=== PATIENT | female | born 1995 | race Two or more races ===

== ENCOUNTER 2016-07-30 16:54 | Emergency (ER) | payer SELFPAY ==
[~2016-07-30] VITALS: Ht 172.7 cm; Wt 78.0 kg
[2016-07-30 16:57] VITALS: Ht 172.7 cm; Wt 78.0 kg
--- NOTE | 2016-07-30 18:06 | ERD ---
ER Documentation Chief Complaint Date/Time DATE: 07/30/16 TIME: 17:55 Chief Complaint 6 WEEKS PREG WITH VOMITING DENIES VB HPI 21 y/o female presents to ED for vomiting that is on and off for about a few days. 8 weeks . Stated she was treated for her throat infection 2 weeks ago. Denies headache, loss of consciousness, dizziness, blurry vision, changes in vision, photophobia, facial pain, ear pain, throat pain, difficulty swallowing, neck pain, shoulder pain, chest pain, cough, hemoptysis, abdominal pain, back pain, loss of appetite, hematochezia, diarrhea, constipation, urinary symptoms, bladder and bowel incontinences, extremity weakness, extremity tenderness, numbness or tingling sensation, difficulty walking, recent exposure to illness, fever, chills. Allergy: NKA PMH: Denies. Family medical history: Denies. with 1 miscarriage. LMP: 06/25/2016 Medications: Stated that she just finished a "penicillin-like antibiotic." Surgery: Denies. Social: Not working at this time. Denies smoking, use of alcohol, use of illegal drugs. ROS All systems reviewed and are negative except as per history of present illness. Medications Home Meds Active Scripts Ondansetron Hcl* (Zofran*) 4 Mg Tablet, 4 MG PO Q6H Y for NAUSEA, #30 TAB Prov:FERMIN CERDA 07/30/16 Clindamycin Hcl* (Clindamycin Hcl*) 300 Mg Capsule, 300 MG PO TID for 10 Days, CAP Prov:FERMIN CERDA F 07/30/16 PMhx/Soc Medical and Surgical Hx: pt denies Surgical Hx History of Surgery: No Anesthesia Reaction: No Hx Neurological Disorder: No Hx Respiratory Disorders: No Hx Cardiac Disorders: Yes (htn) Hx Psychiatric Problems: No Hx Miscellaneous Medical Probl: No Hx Alcohol Use: No Hx Substance Use: No Hx Tobacco Use: No Smoking Status: Never smoker Physical Exam Vitals Vital Signs Date Time Temp Pulse Resp B/P Pulse Ox O2 Delivery O2 Flow Rate FiO2 07/30/16 20:00 98.9 72 18 107/68 99 Room Air 07/30/16 16:57 98.9 98 18 123/57 99 Physical Exam CONSTITUTIONAL: Well-appearing; well-nourished; in no apparent distress.~ HEAD: Normocephalic; atraumatic.~ No visible or palpable masses. EYES: Conjunctiva clear, sclera non-icteric, EOM intact. PERRL Ears: Hearing intact. EACs clear, TMs non-bulging, non-inflamed, translucent & mobile, ossicles normal appearance, No obstructions, no erythema, no discharges Nose: No obstructions. No polyps. No external lesions. Mucosa non-inflamed. No external lesions, septum and turbinates normal. No rhinorrhea. No discharges. Frontal sinus is non-tender to palpation. Maxillary sinus is non-tenderness to palpation. MOUTH: Moist mucous membranes, no lesion, no obstructions, no vesicles, no thrush TEETH: No obvious carries or periodontal diseases. No gingival inflammation, lesions, bleeding, discharge. Throat: Uvula in midline. Right tonsil is +2 with no erythema, but with exudate. Left tonsil is +2 with no erythema, but with exudate. Tolerating secretions well. Good gag reflex. Neck: Supple, without lesions, bruits, or adenopathy. No mass. Thyroid non- enlarged and non-tender to palpation. CHEST: Symmetrical chest. Respirations even and not labored. No retractions noted. CARDIOVASCULAR: Normal S1, S2. RRR. No murmurs, gallops. RESPIRATORY: Normal chest excursion with respiration; breath sounds clear and equal bilaterally; no wheezes, rhonchi, or rales. Breathing even and unlabored. Speaking in clear, full, and complete sentences w/ ease. ABDOMEN: Normal bowel sounds normal. Soft, round, non-distended, non-guarding, no tenderness, no rebound, no organomegaly, no masses, no pulsating abdominal mass. No hernia. No peritoneal signs. : No CVA Tenderness. BACK: Symmetrical shoulder. Spine is midline without deformity, tenderness. No evidence of trauma or deformity. PELVIS: Stable pelvis. No evidence of trauma or deformity.~ MUSCULOSKELETAL: Normal gait and station. No misalignment, asymmetry, crepitation, defects, tenderness, masses, effusions, decreased range of motion, instability, atrophy or abnormal strength or tone in the head, neck, spine, ribs , pelvis or extremities. No calf tenderness. NEUROVASCULAR: Distal pulses are present. Pedal pulse are present, equal, and normal. Cap refills are < 2 seconds. NEUROLOGIC: Alert and oriented x4. Speaks full and clear sentences. Cranial Nerves II-XII normal. Sensation to pain, touch, and proprioception normal. Grossly unremarkable. No neurologic deficits. Romberg test is negative. PSYCHOLOGICAL: The patients mood and manner are appropriate. No hallucinations , delusions. Not SI. Not HI. Has the capacity to decide for himself/herself. SKIN: Normal for age and ethnicity; warm; dry; good turgor; no apparent lesions or exudates. No rashes, hives, discoloration. Intact. Results 24 hrs Laboratory Tests Test 07/30/16 18:18 Urine Bacteria FEW Urine Bilirubin NEGATIVE Urine Clarity SLIGHTLY CLOUDY Urine Color YELLOW Urine Glucose NEGATIVE% Urine Hemoglobin TRACE Urine Ketones 40 Urine Leukocyte Esterase TRACE Urine Microscopic RBC 0-2/HPF Urine Microscopic WBC 2-5/HPF Urine Nitrite NEGATIVE Urine Specific [place] 1.015 Urine Squamous Epithelial Cells MODERATE Urine Total Protein NEGATIVE Urine Urobilinogen 1.0 E.U./dL Urine pH 6.5 Current Medications Medications (Trade) Dose Ordered Sig/Kyle Route PRN Reason Start Time Stop Time Status Last Admin Dose Admin Ondansetron HCl (Zofran Odt) 4 mg ONCE STAT ODT 07/30/16 19:39 07/30/16 19:40 DC 07/30/16 19:45 Acetaminophen (Tylenol Tab) 1,000 mg ONCE STAT PO 07/30/16 20:09 07/30/16 20:10 DC 07/30/16 20:12 Procedures/MDM Examination: Unremarkable examination except exudates. Unremarkable abdominal exam. Disease process, medical treatment was explained to the patient and family member. They verbalized understanding and agreed with the diagnostic tests, medical treatment, and follow-up care. Urinalysis: Reviewed. Treatment: Zofran. Re-evaluation: Denies pain. No nausea and vomiting. Unremarkable abdominal exam. No CVA tenderness. Denies vaginal bleeding. Appears comfortable. Consultation: None. Differential diagnosis: Nausea and vomiting versus strep throat versus urinary tract infection Medical decision [id number] y/o female presents to ED for vomiting that is on and off for about a few days. 8 weeks . Stated she was treated for her throat infection 2 weeks ago. Patient's complaint, my physical findings, diagnostic test results are consistent with my final diagnosis of strep throat. Medications prescribed are the following: Clindamycin. Zofran. Patient and family member are made aware of the side effects and adverse reactions of the medications prescribed. Instructed on when to seek emergent and medical attention in case allergic/anaphylactic reactions or severe side effects and or adverse reactions to medications. Patient and family member verbalized understanding. Patient instructed Instructed to follow-up with his PCP in 24-48 hours. Follow-up with OB in the next 24-48 hours. OB referral source given. Instructed to Call 911 for chest pain, shortness of breath. Advised to come back here in ED as soon as possible for severity of symptoms which includes but not limited to: any new symptoms; shortness of breath/difficulty of breathing; cardiovascular changes; severe gastrointestinal symptoms; signs and symptoms of bleeding and or infection; signs of compartment syndrome/neurovascular changes; neurological changes/deficits. Patient and family member verbalized understanding. Upon discharge, patient is alert and oriented x 4, speaks full and clear sentences, denies pain, has no neurological deficits, has no neurovascular deficits, difficulty of breathing. Breathing even and unlabored. Lung sounds are clear to auscultation. Not in distress. Unremarkable abdominal exam. No peritoneal signs. No CVA tenderness. Denies vaginal bleeding. No active bleeding. Denies vaginal discharge. Appears comfortable. Ambulatory with steady gait. Appears satisfied with care provided here in ED. Departure Diagnosis: Primary Impression: Strep throat Condition: Good Additional Instructions: Follow-up with PCP in the next 24-48 hours. Follow-up with OB in the next 24- 48 hours. Patient was given OB referral. FERMIN CERDA Jul 30, 2016 18:06
[2016-07-30 19:10] LABS: ADD UMIC YES; URINE BILIRUBIN (Dip) NEGATIVE (NEGATIVE); URINE BLOOD (Dip) TRACE (NEGATIVE); URINE GLUCOSE (Dip) NEGATIVE (NEGATIVE); URINE KETONES (Dip) 40 (NEGATIVE); URINE LEUKOCYTE ESTERASE (Dip) TRACE (NEGATIVE); URINE NITRITE (Dip) NEGATIVE (NEGATIVE); URINE TOTAL PROTEIN (Dip) NEGATIVE (NEGATIVE); URINE UROBILINOGEN (Dip) 1.0 E.U./dL (0.1-1.0)
[2016-07-30 19:37] LABS: BACTERIA,URINE FEW; SQUAMOUS EPITHELIAL CELL,UR MODERATE; URINE COLOR YELLOW (YELLOW); URINE RBCS 0-2 /HPF (0)
[2016-07-30] MEDS ORDERED: ONDANSETRON (ODT) 4 MG TAB ODT STA (19:39)
[2016-07-30] MEDS ORDERED: ONDA4TAB8 PO (19:55)
[2016-07-30] MEDS ORDERED: CLIN-73 PO (19:55)
[2016-07-30 20:00] VITALS: BP 107/68; PULSE 72; RESP 18; TEMP 98.9
[2016-07-30] MEDS ORDERED: ACETAMINOPHEN 500 MG TAB PO STA (20:09)
== END 2016-07-30 20:14 | disposition home or self-care (01) ==
LOC: FTE 16:54
DX: O99.511 Diseases of the respiratory system complicating pregnancy, first trimester (principal); J02.0 Streptococcal pharyngitis; O10.011 Pre-existing essential hypertension complicating pregnancy, first trimester; Z3A.08 8 weeks gestation of pregnancy
CPT/HCPCS: 81001; 81003; 99284

== ENCOUNTER 2016-08-02 19:31 | Emergency (ER) | payer SELFPAY ==
[~2016-08-02] VITALS: Ht 182.9 cm; Wt 76.4 kg
[~2016-08-02 19:31] MED LIST: CLIN-73 PO; ONDA4TAB8 PO
[2016-08-02 20:03] VITALS: Ht 182.9 cm; Wt 76.4 kg
--- NOTE | 2016-08-02 22:12 | ERD ---
ER Documentation Chief Complaint Date/Time DATE: 08/02/16 TIME: 22:09 Chief Complaint 6 weeks and vomiting for a week HPI 21-year-old female sent here in emergency department complains of pelvic pain, cramping pain,4/10 scale, accompanied with vomiting. Patient was seen here 4 days ago was diagnosed of urinary tract infection and throat infection. Patient' s going taking antibiotics and Zofran. Patient states that patient continues to vomiting, pill Zofran does not work, patient is requesting ODT Zofran. She is approximately 6 weeks . 2 para 1 0. Last menstruation 06/25/2016 patient denies any cramping. Patient denies any fever or chills. ROS All systems reviewed and are negative except as per history of present illness. Medications Home Meds Active Scripts Ondansetron Hcl* (Zofran*) 4 Mg Tablet, 4 MG PO Q6H Y for NAUSEA, #30 TAB Prov:JENNIFERBANESSENCEAR F 07/30/16 Clindamycin Hcl* (Clindamycin Hcl*) 300 Mg Capsule, 300 MG PO TID for 10 Days, CAP Prov:PASILABAN,KLAR F 07/30/16 Allergies Allergies: Coded Allergies: No Known Allergy (Unverified , 08/02/16) PMhx/Soc Medical and Surgical Hx: pt denies Surgical Hx History of Surgery: No Anesthesia Reaction: No Hx Neurological Disorder: No Hx Respiratory Disorders: No Hx Cardiac Disorders: Yes (htn) Hx Psychiatric Problems: No Hx Miscellaneous Medical Probl: No Hx Alcohol Use: No Hx Substance Use: No Hx Tobacco Use: No Smoking Status: Never smoker FmHx Family History: No coronary disease, No diabetes, No other Physical Exam Vitals Vital Signs Date Time Temp Pulse Resp B/P Pulse Ox O2 Delivery O2 Flow Rate FiO2 08/02/16 20:03 98.8 98 18 112/62 100 Physical Exam GENERAL: The patient is well developed and appropriate for usual state of health, in no apparent distress. CHEST: Clear to auscultation bilaterally. There are no rales, wheezes or rhonchi. HEART: Regular rate and rhythm. No murmurs, clicks, rubs or gallops. No S3 or S4. ABDOMEN: Soft, nontender and nondistended. Good bowel sounds. No rebound or guarding. No gross peritonitis. No gross organomegaly or masses. No Zarco sign or McBurney point tenderness. BACK: No midline or flank tenderness. EXTREMITIES: Equal pulses bilaterally. There is no peripheral clubbing, cyanosis or edema. No focal swelling or erythema. Full range of motion. Grossly neurovascularly intact. NEURO: Alert and oriented. Cranial nerves 2-12 intact. Motor strength in all 4 extremities with 5/5 strength. Sensation grossly intact. Normal speech and gait. SKIN: There is no apparent rash or petechia. The skin is warm and dry. HEMATOLOGIC AND LYMPHATIC: There is no evidence of excessive bruising or lymphedema. No gross cervical, axillary, or inguinal lymphadenopathy. Result Diagram: 08/02/16 2300 [id number]/02/[id number] Results 24 hrs Laboratory Tests Test 08/02/16 23:00 08/03/16 00:02 Alanine Aminotransferase (ALT/SGPT) 24IU/L Albumin 4.3g/dl Albumin/Globulin Ratio 1.00 Alkaline Phosphatase 72IU/L Anion Gap 21 Aspartate Amino Transf (AST/SGOT) 19IU/L Basophils # 0.110^3/ul Basophils % 0.6% Beta HCG, Quantitative 52653.0mIU/ml Blood Morphology Comment Blood Urea Nitrogen 10mg/dl Calcium Level 9.2mg/dl Carbon Dioxide Level 24mmol/L Chloride Level 102mmol/L Creatinine 0.49mg/dl Direct Bilirubin 0.00mg/dl Eosinophils # 0.010^3/ul Eosinophils % 0.4% Globulin 4.30g/dl Glucose Level 106mg/dl Hematocrit 35.2% Hemoglobin 11.8g/dl Indirect Bilirubin 0.2mg/dl Lymphocytes # 3.110^3/ul Lymphocytes % 24.5% Mean Corpuscular Hemoglobin 27.8pg Mean Corpuscular Hemoglobin Concent 33.4g/dl Mean Corpuscular Volume 83.3fl Mean Platelet Volume 9.5fl Monocytes # 0.610^3/ul Monocytes % 4.6% Neutrophils # 8.810^3/ul Neutrophils % 69.9% Nucleated Red Blood Cells # 0.010^3/ul Nucleated Red Blood Cells % 0.0/100WBC Platelet Count 25303^3/UL Potassium Level 3.8mmol/L Red Blood Count 4.2310^6/ul Red Cell Distribution Width 14.5% Sodium Level 143mmol/L Total Bilirubin 0.2mg/dl Total Protein 8.6g/dl White Blood Count 12.610^3/ul Urine Bilirubin 1+ Urine Clarity CLEAR Urine Color YELLOW Urine Glucose NEGATIVE% Urine Hemoglobin 1+ Urine Ictotest Pending Urine Ketones 3+ Urine Leukocyte Esterase NEGATIVE Urine Microscopic RBC Pending Urine Microscopic WBC Pending Urine Nitrite NEGATIVE Urine Specific [place] >=1.030 Urine Total Protein TRACE Urine Urobilinogen 1.0 E.U./dL Urine pH 6.0 Current Medications Medications (Trade) Dose Ordered Sig/Kyle Route PRN Reason Start Time Stop Time Status Last Admin Dose Admin Ondansetron HCl (Zofran Odt) 4 mg ONCE STAT ODT 08/02/16 23:50 08/02/16 23:51 DC 08/02/16 23:59 Patient was given Zofran here in the emergency department. After treatment, patient was able to tolerate po fluids here in the emergency department without any vomiting. There is no signs and symptoms of dehydration. PROCEDURE: US OB. CLINICAL INDICATION: . Pelvic pain. Clinical estimated gestational age is 5 weeks 3 days with estimated date of delivery 04/01/2017 TECHNIQUE: Transabdominal and transvaginal imaging of the gravid uterus was performed. Images are reviewed on a high-resolution PACS workstation. COMPARISON: None available FINDINGS: The uterus is retroverted. Intrauterine is identified. The crown- rump length equals 0.32 cm. The estimated gestational age equals 13 weeks 3 days by ultrasound criteria. Trace fluid in the endocervical canal. Normal cardiac activity is identified at 102 beats per minute. No subchorionic hemorrhage is identified. The ovaries are unremarkable. Color flow and spectral analysis demonstrates normal arterial flow in both ovaries. No adnexal mass is seen. Trace free fluid is seen in the cul-de-sac. IMPRESSION: Single live intrauterine with an estimated gestational age of 6 weeks 0 days by ultrasound criteria and an estimated date of delivery of 03/28/2017. Trace fluid in the endocervical canal. Trace free fluid in the cul-de-sac. RPTAT: HJES .Eduardo Wiggins MD, MD Date Time Electronically viewed and signed by .Eduardo Wiggins MD, on 08/02/2016 23:24 .S/ CC: CAS CHACON NP Procedures/MDM Medical Decision Making: Patient's symptoms most likely consistent with hyperemesis gravidarum. No electrolytic imbalance noted at this time. Patient's urinary tract infection has improved. There is low suspicion for abdominal emergencies at this time. Patients abdominal exam is normal at this time. Patients radiology exam does not show any abdominal emergencies at this time. There is low suspicion for appendicitis, cholecystitis, abdominal aortic aneurysms or peritonitis at this time. There is low suspicion for sepsis. Patient appears well and is hemodynamically stable. Patient's ultrasound shows a viable at 6 weeks. Disposition: Home. Condition: Stable Prescription Zofran, Pepcid Pedialyte Instructions: Patient is advised to take medications as prescribed. Patient is advised to rest, increase fluid intake and do brat diet for next 1-2 days and progress as tolerated. Patient is advised that if symptoms are worse, severe abdominal pain, uncontrolled vomiting, high fever, severe flank pain, worst signs and symptoms, to return to the emergency department immediately. Otherwise, patient can follow up with primary care doctor in 5-7 days. Departure Diagnosis: Primary Impression: Hyperemesis gravidarum Additional Impressions: Intrauterine Pelvic pain Condition: Stable Patient Instructions: Hyperemesis Gravidarum, Pelvic Pain In : Unclear (2-3 Trimester) Additional Instructions: Patient is advised to take medications as prescribed. Patient is advised to rest, increase fluid intake and do brat diet for next 1-2 days and progress as tolerated. Patient is advised that if symptoms are worse, severe abdominal pain , uncontrolled vomiting, high fever, severe flank pain, worst signs and symptoms , to return to the emergency department immediately. Otherwise, patient can follow up with primary care doctor in 5-7 days. CAS CHACON NP Aug 02, 2016 22:12
[2016-08-02 23:20] LABS: BASOPHIL # 0.1 10^3/ul (0.0-0.1); BASOPHILS % 0.6 % (0.0-2.0); EOSINOPHILS % 0.4 % (0.0-7.0); HEMATOCRIT 35.2 % (37.0-47.0); HEMOGLOBIN 11.8 g/dl (12.0-16.0); LYMPHOCYTES # 3.1 10^3/ul (0.8-2.9); LYMPHOCYTES % 24.5 % (15.0-51.0); MEAN CORPUSCULAR HEMOGLOBIN 27.8 pg (29.0-33.0); MEAN CORPUSCULAR HGB CONC 33.4 g/dl (32.0-37.0); MEAN CORPUSCULAR VOLUME 83.3 fl (82.0-101.0); MEAN PLATELET VOLUME 9.5 fl (7.4-10.4); MONOCYTE # 0.6 10^3/ul (0.3-0.9); MONOCYTES % 4.6 % (0.0-11.0); NEUTROPHIL # 8.8 10^3/ul (1.6-7.5); NEUTROPHILS % 69.9 % (39.0-77.0); PLATELET COUNT 319 10^3/UL (140-440); RED BLOOD COUNT 4.23 10^6/ul (4.20-5.40); RED CELL DISTRIBUTION WIDTH 14.5 % (11.5-14.5); UNCORRECTED WBC 12.6 10^3/ul (4.8-10.8); WHITE BLOOD COUNT 12.6 10^3/ul (4.8-10.8)
[2016-08-02 23:21] LABS: CONDITION 1
--- NOTE | 2016-08-02 23:25 | RADRPT ---
PROCEDURE: US OB. CLINICAL INDICATION: . Pelvic pain. Clinical estimated gestational age is 5 weeks 3 days with estimated date of delivery 04/01/2017 TECHNIQUE: Transabdominal and transvaginal imaging of the gravid uterus was performed. Images are reviewed on a high-resolution PACS workstation. COMPARISON: None available FINDINGS: The uterus is retroverted. Intrauterine is identified. The crown-rump length equals 0.32 cm. The estimated gestational age equals 13 weeks 3 days by ultrasound criteria. Trace fluid in th e endocervical canal. Normal cardiac activity is identified at 102 beats per minute. No subc horionic hemorrhage is identified. The ovaries are unremarkable. Color flow and spectral analysis d emonstrates normal arterial flow in both ovaries. No adnexal mass is seen. Trace free fluid is see n in the cul-de-sac. IMPRESSION: Single live intrauterine with an estimated gestational age of 6 weeks 0 days by ultrasound criteria and an estimated date of delivery of 03/28/2017. Trace fluid in the endocervical canal. T race free fluid in the cul-de-sac. RPTAT: HJES .Eduardo Wiggins MD, Date Time Electronically viewed and signed by .Eduardo Wiggins MD, on 08/02/2016 23:24 .S/
[2016-08-02 23:29] LABS: ALBUMIN 4.3 g/dl (3.3-4.9); POTASSIUM 3.8 mmol/L (3.5-5.1)
[2016-08-02 23:31] LABS: BILIRUBIN,INDIRECT 0.2 mg/dl (0-1.1); BILIRUBIN,TOTAL 0.2 mg/dl (0.2-1.3); CREATININE 0.49 mg/dl (0.44-1.00)
[2016-08-02 23:32] LABS: TOTAL PROTEIN 8.6 g/dl (6.1-8.1)
[2016-08-02 23:33] LABS: CALCIUM 9.2 mg/dl (8.4-10.2)
[2016-08-02] MEDS ORDERED: ONDANSETRON (ODT) 4 MG TAB ODT STA (23:50)
[2016-08-03 00:31] LABS: ADD UMIC YES; URINE BILIRUBIN (Dip) 1+ (NEGATIVE); URINE BLOOD (Dip) 1+ (NEGATIVE); URINE COLOR YELLOW (YELLOW); URINE GLUCOSE (Dip) NEGATIVE (NEGATIVE); URINE KETONES (Dip) 3+ (NEGATIVE); URINE LEUKOCYTE ESTERASE (Dip) NEGATIVE (NEGATIVE); URINE NITRITE (Dip) NEGATIVE (NEGATIVE); URINE TOTAL PROTEIN (Dip) TRACE (NEGATIVE); URINE UROBILINOGEN (Dip) 1.0 E.U./dL (0.1-1.0)
[2016-08-03] MEDS ORDERED: ONDA4TAB14 PO (00:51)
[2016-08-03] MEDS ORDERED: FAMO-18 PO (00:51)
[2016-08-03 01:17] VITALS: BP 119/60; PULSE 81; RESP 17; TEMP 99.3
[2016-08-03 01:24] LABS: BACTERIA,URINE FEW; MUCUS,URINE MODERATE; SQUAMOUS EPITHELIAL CELL,UR FEW
[2016-08-03 02:11] LABS: ICTOTEST NEGATIVE (NEGATIVE)
== END 2016-08-03 01:19 | disposition home or self-care (01) ==
LOC: FTE 19:31
DX: O21.0 Mild hyperemesis gravidarum (principal); R10.2 Pelvic and perineal pain; I10 Essential (primary) hypertension; Z3A.01 Less than 8 weeks gestation of pregnancy
CPT/HCPCS: 36415; 76801; 76817; 80053; 81001; 81003; 84702; 85025; 86900; 86901

== ENCOUNTER 2016-08-16 02:26 | Emergency (ER) | payer MEDICAID ==
[~2016-08-16] VITALS: Ht 172.7 cm; Wt 75.0 kg
[~2016-08-16 02:26] MED LIST changes: +FAMO-18 PO; +ONDA4TAB14 PO
[2016-08-16 02:45] VITALS: Ht 172.7 cm; Wt 75.0 kg
[2016-08-16] MEDS ORDERED: ONDANSETRON 4 MG INJ IV STA (03:57)
[2016-08-16] MEDS ORDERED: SOD CHLORIDE 0.9% 1,000 ML IV ONE (04:00)
[2016-08-16] MEDS ORDERED: LIDOCAINE/MYLANTA 40 ML BTL PO ONE (04:30)
[2016-08-16] MEDS ORDERED: FAMOTIDINE 20 MG INJ IV ONE (04:30)
[2016-08-16] MEDS ORDERED: MULTIVITAMINS 10 ML, THIAMINE 100 MG, FOLIC ACID 1 MG, MAGNESIUM SULFATE 2 GM in SOD CH... IV ONE (04:30)
--- NOTE | 2016-08-16 04:34 | ERD ---
ER Documentation Chief Complaint Date/Time DATE: 08/16/16 TIME: 04:32 Chief Complaint 8 weeks ,vomiting,denies abd/pelvic pain HPI 21-year-old female presents to emergency department for complaints of multiple episodes of vomiting. Patient has been diagnosed with hyperemesis gravidarum, has been seen in the emergency department 3 times, has tried multiple medications, continues to have the vomiting. Patient was told to return to the emergency department if medication does not work. Patient denies any abdominal pain. Patient is complaining of mid chest pain acid reflux burning pain, 4/10 scale, accompanied with the vomiting. Patient denies any fever or chills. 1 para 0 0. Patient denies any vaginal bleeding. Patient denies any flank pain. Patient denies hematuria or dysuria. ROS All systems reviewed and are negative except as per history of present illness. Medications Home Meds Active Scripts Famotidine* (Pepcid*) 20 Mg Tablet, 20 MG PO BID, #60 TAB Prov:CAS CHACON NP 08/03/16 Ondansetron (Ondansetron Odt) 4 Mg Tab.rapdis, 4 MG PO Q8 Y for NAUSEA AND/OR VOMITING, #30 TAB Prov:CAS CHACON ELECTRON GUN INSPECTOR 08/03/16 Ondansetron Hcl* (Zofran*) 4 Mg Tablet, 4 MG PO Q6H Y for NAUSEA, #30 TAB Prov:FERMIN CERDA F 07/30/16 Clindamycin Hcl* (Clindamycin Hcl*) 300 Mg Capsule, 300 MG PO TID for 10 Days, CAP Prov:FERMIN CERDA F 07/30/16 Allergies Allergies: Coded Allergies: No Known Allergy (Unverified , 08/02/16) PMhx/Soc Medical and Surgical Hx: pt denies Medical Hx, pt denies Surgical Hx History of Surgery: No Anesthesia Reaction: No Hx Neurological Disorder: No Hx Respiratory Disorders: No Hx Cardiac Disorders: No Hx Psychiatric Problems: No Hx Miscellaneous Medical Probl: No Hx Alcohol Use: No Hx Substance Use: No Hx Tobacco Use: No Smoking Status: Never smoker FmHx Family History: No coronary disease, No diabetes, No other Physical Exam Vitals Vital Signs Date Time Temp Pulse Resp B/P Pulse Ox O2 Delivery O2 Flow Rate FiO2 08/16/16 02:45 99.8 97 18 108/73 98 Physical Exam GENERAL: The patient is well developed and appropriate for usual state of health, in no apparent distress. CHEST: Clear to auscultation bilaterally. There are no rales, wheezes or rhonchi. HEART: Regular rate and rhythm. No murmurs, clicks, rubs or gallops. No S3 or S4. ABDOMEN: Soft, nontender and nondistended. Good bowel sounds. No rebound or guarding. No gross peritonitis. No gross organomegaly or masses. No Zarco sign or McBurney point tenderness. BACK: No midline or flank tenderness. EXTREMITIES: Equal pulses bilaterally. There is no peripheral clubbing, cyanosis or edema. No focal swelling or erythema. Full range of motion. Grossly neurovascularly intact. NEURO: Alert and oriented. Cranial nerves 2-12 intact. Motor strength in all 4 extremities with 5/5 strength. Sensation grossly intact. Normal speech and gait. SKIN: There is no apparent rash or petechia. The skin is warm and dry. HEMATOLOGIC AND LYMPHATIC: There is no evidence of excessive bruising or lymphedema. No gross cervical, axillary, or inguinal lymphadenopathy. Result Diagram: 08/16/1644108/16/16441 Results 24 hrs Laboratory Tests Test 08/16/16 04:32 08/16/16 04:42 Urine Bacteria FEW Urine Bilirubin NEGATIVE Urine Clarity SLIGHTLY CLOUDY Urine Color LT. YELLOW Urine Glucose NEGATIVE% Urine Hemoglobin 2+ Urine Ketones 3+ Urine Leukocyte Esterase TRACE Urine Microscopic RBC 10-25/HPF Urine Microscopic WBC 10-25/HPF Urine Mucus MODERATE Urine Nitrite NEGATIVE Urine Specific [employer] >=1.030 Urine Squamous Epithelial Cells MANY Urine Total Protein TRACE Urine Urobilinogen 0.2 E.U./dL Urine pH 6.5 Alanine Aminotransferase (ALT/SGPT) 39IU/L Albumin 4.3g/dl Albumin/Globulin Ratio 1.00 Alkaline Phosphatase 71IU/L Anion Gap 24 Aspartate Amino Transf (AST/SGOT) 25IU/L Basophils # 0.010^3/ul Basophils % 0.2% Beta HCG, Quantitative 906582.0mIU/ml Blood Urea Nitrogen 9mg/dl Calcium Level 9.8mg/dl Carbon Dioxide Level 21mmol/L Chloride Level 101mmol/L Creatinine 0.49mg/dl Direct Bilirubin 0.00mg/dl Eosinophils # 0.110^3/ul Eosinophils % 0.6% Globulin 4.30g/dl Glucose Level 87mg/dl Hematocrit 38.5% Hemoglobin 12.4g/dl Indirect Bilirubin 0.4mg/dl Lipase 86U/L Lymphocytes # 2.110^3/ul Lymphocytes % 25.3% Mean Corpuscular Hemoglobin 27.1pg Mean Corpuscular Hemoglobin Concent 32.2g/dl Mean Corpuscular Volume 84.1fl Mean Platelet Volume 11.2fl Monocytes # 0.410^3/ul Monocytes % 4.7% Neutrophils # 5.710^3/ul Neutrophils % 68.8% Nucleated Red Blood Cells # 0.010^3/ul Nucleated Red Blood Cells % 0.0/100WBC Platelet Count 82286^3/UL Potassium Level 3.9mmol/L Red Blood Count 4.5810^6/ul Red Cell Distribution Width 13.7% Sodium Level 142mmol/L Total Bilirubin 0.4mg/dl Total Protein 8.6g/dl White Blood Count 8.310^3/ul Current Medications Medications (Trade) Dose Ordered Sig/Kyle Route PRN Reason Start Time Stop Time Status Last Admin Dose Admin Ondansetron HCl 4 mg 4 mg ONCE STAT IV 08/16/16 03:57 08/16/16 04:00 DC 08/16/16 04:46 Sodium Chloride 1,000 ml @ 1,000 mls/hr Q1H ONCE IV 08/16/16 04:00 08/16/16 04:59 DC 08/16/16 04:46 Multivitamins/ Thiamine HCl/ Folic Acid/ Magnesium Sulfate/ Sodium Chloride (Mvi-12 Adult/ Vitamin B1/Folic Acid/Magnesium Sulfate/NS) 1,015.2 ml @ 500 mls/ hr Q2H2M ONCE IV 08/16/16 04:30 08/16/16 06:31 08/16/16 05:35 Miscellaneous Medication (Gi Cocktail (2)) 40 ml ONCE ONCE PO 08/16/16 04:30 08/16/16 04:31 DC 08/16/16 04:46 Famotidine (Pepcid Iv) 20 mg ONCE ONCE IV 08/16/16 04:30 08/16/16 04:31 DC 08/16/16 04:46 I Discussed this case with OB Laborist, Dr Ordoñez, recommended to give patient banana bag, GI cocktail, Pepcid, fluids and Zofran for symptoms. Patient was given Zofran here in the emergency department. After treatment, patient was able to tolerate po fluids here in the emergency department without any vomiting. There is no signs and symptoms of dehydration. Normal saline IV bolus and banana bag IV was given here in emergency department for rehydration, patient tolerated IV fluids. PROCEDURE: Obstetrical ultrasound. CLINICAL INDICATION: Vaginal bleeding. TECHNIQUE: Multiple sonographic images of the pelvis were obtained with transabdominal technique. Images were obtained with beyer scale and color Doppler. COMPARISON: 08/02/2016. FINDINGS: There is an intrauterine gestational sac with a pole identified. heart tones of 163 beats per minute are identified. The crown-rump length averages 1.30 cm, compatible with 7 weeks and 4 days. The mean sac diameter averages 3.00 cm, compatible with 8 weeks and 0 days. A yolk sac is not visualized. No subchorionic collection is identified. There is no pelvic free fluid. Bilateral ovaries are not visualized. There is no suspicious adnexal mass identified. IMPRESSION: Single live intrauterine with an estimated gestational age of 7 weeks and 6 days, with an ultrasound DARRYL of 03/29/2017. Bilateral ovaries not visualized. .Klaus Serrano MD, Date Time Electronically viewed and signed by .Klaus Serrano MD, on 08/16/2016 04:42 .T/ CC: CAS CHACON ELECTRON GUN INSPECTOR After medications here in emergency department, patient verbalized much better, patient has an appointment with OB specialist at 9 AM today, will go to the appointment, patient has multiple medications a home that she can take, also is currently on treatment for urinary tract infection. Vital signs are stable, patient is advised to return to emergency department for any worsening symptoms. Procedures/MDM Medical Decision Making: Patient's symptoms consistent with hyperemesis gravidarum, patient has an appointment with OB specialist at 9 AM and wants to go to and make it to her appointment. Electrolytes are normal at this time. is viable There is low suspicion for abdominal emergencies at this time. Patients abdominal exam is normal at this time. Patients radiology exam does not show any abdominal emergencies at this time. There is low suspicion for appendicitis, cholecystitis, abdominal aortic aneurysms or peritonitis at this time. There is low suspicion for sepsis. Patient appears well and is hemodynamically stable. Disposition: Home. Condition: Stable Prescription : continue take medications prescribed to eat. Instructions: Patient is advised to take medications as prescribed. Patient is advised to rest, increase fluid intake and do brat diet for next 1-2 days and progress as tolerated. Patient is advised that if symptoms are worse, severe abdominal pain, uncontrolled vomiting, high fever, severe flank pain, worst signs and symptoms, to return to the emergency department immediately. Otherwise, patient can follow up with OB doctor as per appointment at 9 AM today Departure Diagnosis: Primary Impression: Hyperemesis gravidarum Condition: Stable Patient Instructions: Hyperemesis Gravidarum (Severe Morning Sickness) Additional Instructions: Patient is advised to take medications as prescribed. Patient is advised to rest , increase fluid intake and do brat diet for next 1-2 days and progress as tolerated. Patient is advised that if symptoms are worse, severe abdominal pain , uncontrolled vomiting, high fever, severe flank pain, worst signs and symptoms , to return to the emergency department immediately. Otherwise, patient can follow up with OB doctor as per appointment at 9 AM today CAS CHACON NP Aug 16, 2016 04:34
--- NOTE | 2016-08-16 04:43 | RADRPT ---
PROCEDURE: Obstetrical ultrasound. CLINICAL INDICATION: Vaginal bleeding. TECHNIQUE: Multiple sonographic images of the pelvis were obtained with transabdominal technique. Images were obtained with beyer scale and color Doppler. COMPARISON: 08/02/2016. FINDINGS: There is an intrauterine gestational sac with a pole identified. heart tones of 163 beat s per minute are identified. The crown-rump length averages 1.30 cm, compatible with 7 weeks a nd 4 days. The mean sac diameter averages 3.00 cm, compatible with 8 weeks and 0 days. A yolk sac is not visualized. No subchorionic collection is identified. There is no pelvic free fluid. Bilateral ovaries are not visualized. There is no suspicious adnexal mass identified. IMPRESSION: Single live intrauterine with an estimated gestational age of 7 weeks and 6 days, with an ultrasound DARRYL of 03/29/2017. Bilateral ovaries not visualized. .Klaus Serrano MD, Date Time Electronically viewed and signed by .Klaus Serrano MD, on 08/16/2016 04:42 .T/
[2016-08-16 04:56] LABS: ADD SCAN DIFF NO
[2016-08-16 05:02] LABS: BASOPHILS % 0.2 % (0.0-2.0); EOSINOPHILS # 0.1 10^3/ul (0.0-0.5); EOSINOPHILS % 0.6 % (0.0-7.0); HEMATOCRIT 38.5 % (37.0-47.0); HEMOGLOBIN 12.4 g/dl (12.0-16.0); LYMPHOCYTES # 2.1 10^3/ul (0.8-2.9); LYMPHOCYTES % 25.3 % (15.0-51.0); MEAN CORPUSCULAR HEMOGLOBIN 27.1 pg (29.0-33.0); MEAN CORPUSCULAR HGB CONC 32.2 g/dl (32.0-37.0); MEAN CORPUSCULAR VOLUME 84.1 fl (82.0-101.0); MEAN PLATELET VOLUME 11.2 fl (7.4-10.4); MONOCYTE # 0.4 10^3/ul (0.3-0.9); MONOCYTES % 4.7 % (0.0-11.0); NEUTROPHIL # 5.7 10^3/ul (1.6-7.5); NEUTROPHILS % 68.8 % (39.0-77.0); PLATELET COUNT 304 10^3/UL (140-415); RED BLOOD COUNT 4.58 10^6/ul (4.20-5.40); RED CELL DISTRIBUTION WIDTH 13.7 % (11.5-14.5); WHITE BLOOD COUNT 8.3 10^3/ul (4.8-10.8)
[2016-08-16 05:07] LABS: ADD UMIC YES; URINE BILIRUBIN (Dip) NEGATIVE (NEGATIVE); URINE BLOOD (Dip) 2+ (NEGATIVE); URINE COLOR LT. YELLOW (YELLOW); URINE GLUCOSE (Dip) NEGATIVE (NEGATIVE); URINE KETONES (Dip) 3+ (NEGATIVE); URINE LEUKOCYTE ESTERASE (Dip) TRACE (NEGATIVE); URINE NITRITE (Dip) NEGATIVE (NEGATIVE); URINE TOTAL PROTEIN (Dip) TRACE (NEGATIVE); URINE UROBILINOGEN (Dip) 0.2 E.U./dL (0.1-1.0)
[2016-08-16 05:22] LABS: ALBUMIN 4.3 g/dl (3.3-4.9); POTASSIUM 3.9 mmol/L (3.5-5.1)
[2016-08-16 05:24] LABS: BILIRUBIN,INDIRECT 0.4 mg/dl (0-1.1); BILIRUBIN,TOTAL 0.4 mg/dl (0.2-1.3); CREATININE 0.49 mg/dl (0.44-1.00)
[2016-08-16 05:25] LABS: CALCIUM 9.8 mg/dl (8.4-10.2); TOTAL PROTEIN 8.6 g/dl (6.1-8.1)
[2016-08-16 05:26] LABS: BACTERIA,URINE FEW; MUCUS,URINE MODERATE; SQUAMOUS EPITHELIAL CELL,UR MANY
[2016-08-16 07:41] VITALS: BP 128/62; PULSE 105; RESP 18; TEMP 97.7
== END 2016-08-16 07:43 | disposition home or self-care (01) ==
LOC: FTE 02:26
DX: O21.0 Mild hyperemesis gravidarum (principal); Z3A.01 Less than 8 weeks gestation of pregnancy
CPT/HCPCS: 36415; 76801; 80053; 81001; 83690; 84702; 85025; 96365; 96366; 96375; J2405; J3411; J3475; J7030; Z7502; Z7610; 81003

== ENCOUNTER 2017-01-01 19:25 | Emergency (ER) | payer MEDICAID, OTHER ==
[~2017-01-01] VITALS: Ht 172.7 cm; Wt 72.0 kg
[~2017-01-01 19:25] MED LIST changes: -FAMO-18 PO; +FAMO-96 PO
[2017-01-01 19:30] VITALS: Ht 172.7 cm; Wt 72.0 kg
[2017-01-01] MEDS ORDERED: ONDANSETRON 4 MG INJ IV STA (19:30)
[2017-01-01] MEDS ORDERED: SOD CHLORIDE 0.9% 1,000 ML IV STA (19:30)
[2017-01-01] MEDS ORDERED: morphine 4 MG/ML VIAL IV STA (19:30)
[2017-01-01 19:58] LABS: BASOPHILS % 0.2 % (0.0-2.0); EOSINOPHILS # 0.2 10^3/ul (0.0-0.5); HEMATOCRIT 32.4 % (37.0-47.0); HEMOGLOBIN 10.5 g/dl (12.0-16.0); LYMPHOCYTES # 3.5 10^3/ul (0.8-2.9); LYMPHOCYTES % 43.1 % (15.0-51.0); MEAN CORPUSCULAR HEMOGLOBIN 29.2 pg (29.0-33.0); MEAN CORPUSCULAR HGB CONC 32.4 g/dl (32.0-37.0); MEAN CORPUSCULAR VOLUME 90.3 fl (82.0-101.0); MEAN PLATELET VOLUME 11.2 fl (7.4-10.4); MONOCYTE # 0.4 10^3/ul (0.3-0.9); MONOCYTES % 5.2 % (0.0-11.0); NEUTROPHIL # 3.9 10^3/ul (1.6-7.5); NEUTROPHILS % 49.3 % (39.0-77.0); PLATELET COUNT 273 10^3/UL (140-415); RED BLOOD COUNT 3.59 10^6/ul (4.20-5.40); RED CELL DISTRIBUTION WIDTH 12.8 % (11.5-14.5)
--- NOTE | 2017-01-01 20:03 | RADRPT ---
PROCEDURE: US Abdomen Limited. CLINICAL INDICATION: Upper abdominal pain TECHNIQUE: Multiple real-time longitudinal and transverse images were acquired of the patient's ri t abdomen and retroperitoneum utilizing a curved array transducer. COMPARISON: None FINDINGS: Pancreas: The pancreas is suboptimally visualized in the tail. There is no significant abnormality in the visualized portion. The main pancreatic duct is not dilated. Liver: The liver shows normal shape, parenchymal echogenicity and echotexture. The right hepatic lo be measures 16.3 cm craniocaudal, which is within normal limits. There is no definite focal lesion v isualized in the liver. Bile ducts: The intrahepatic bile ducts are not dilated. Common bile duct measures 3.[address], within normal limits. Gallbladder: The gallbladder is unremarkable without cholelithiasis, wall thickening, pericholecyst ic fluid, or sonographic Zarco's sign. Kidneys: The right kidney measures 9.2 x 4.5 x 5.4 cm. The parenchymal echogenicity and thickness a ppear within normal range. No focal lesions are visualized. No hydronephrosis. There is no ascites visualized in the right abdomen. RPTAT: QQ IMPRESSION: Unremarkable ultrasound of the right abdomen. .Maddy Yin MD, Date Time Electronically viewed and signed by .Maddy Yin MD, on 01/01/2017 20:03 .T/
[2017-01-01 20:21] LABS: PROTIME 13.2 Sec (12.2-14.2)
[2017-01-01 20:22] LABS: ALANINE AMINOTRANSFERASE 36 IU/L (13-69); ALBUMIN 3.8 g/dl (3.3-4.9); ALBUMIN/GLOBULIN RATIO 0.95; ALKALINE PHOSPHATASE 74 IU/L (42-121); ANION GAP 19 (8-16); ASPARTATE AMINO TRANSFERASE 37 IU/L (15-46); BILIRUBIN,INDIRECT 0.1 mg/dl (0-1.1); BILIRUBIN,TOTAL 0.1 mg/dl (0.2-1.3); BLOOD UREA NITROGEN 14 mg/dl (7-20); CALCIUM 9.4 mg/dl (8.4-10.2); CARBON DIOXIDE 26 mmol/L (21-31); CHLORIDE 102 mmol/L (97-110); GLUCOSE 106 mg/dl (70-220); PARTIAL THROMBOPLASTIN TIME 25.7 Sec (25.0-35.0); POTASSIUM 3.8 mmol/L (3.5-5.1); SODIUM 143 mmol/L (135-144); TOTAL PROTEIN 7.8 g/dl (6.1-8.1)
--- NOTE | 2017-01-01 20:28 | RADRPT ---
PROCEDURE: XR Chest. CLINICAL INDICATION: Abdominal pain TECHNIQUE: Single frontal chest x-ray. COMPARISON: None. FINDINGS: The lungs are adequately expanded and clear. There is no focal consolidation, pleural effusion, or pneumothorax. The heart and mediastinal contours are unremarkable. Bones are unremarkable. There a re no acute fractures. RPTAT: QQ IMPRESSION: No acute cardiopulmonary abnormality. .Maddy Yin MD, MD Date Time Electronically viewed and signed by .Maddy Yin MD, on 01/01/2017 20:27 .T/
[2017-01-01 20:36] LABS: TROPONIN-I < 0.012 ng/ml (0.00-0.12)
[2017-01-01] MEDS ORDERED: SOD CHLORIDE 0.9% 100 ML ONE (20:38)
[2017-01-01] MEDS ORDERED: IOHEXOL 100 ML ONE (20:38)
--- NOTE | 2017-01-01 21:25 | RADRPT ---
PROCEDURE: CTA Chest. CLINICAL INDICATION: Shortness of breath. Hypoxia. TECHNIQUE: The study was performed utilizing a multidetector CT scanner. Direct spiral 1 mm axial sections were obtained from the thoracic inlet to the upper abdomen with the use of 100 cc of Omnipa que 350 nonionic intravenous contrast material and reformatted at 3 mm. Coronal reformations were ob tained. The images were reviewed on a PACS workstation. CT D I 35 mCi. Dose 262 mCi per centimeter COMPARISON: No prior studies are available for comparison. FINDINGS: There is no central or peripheral pulmonary embolism. Thoracic aorta is normal with no dissection o r aneurysm. There is no hilar or mediastinal adenopathy or mass. There is ill-defined soft tissue in the retrosternal anterior mediastinum likely representing residual thymic tissue. No pleural or pericardial effusion is seen. The lungs are clear of any infiltrates. Noted is a 10 mm noncalcifie d nodular pleural-based density along the posterior lateral aspect of the superior segment of the ri ght lower lobe. The borders are somewhat indistinct. This may represent early round pneumonia. How ever, other etiologies cannot be ruled out. No upper abdominal or adrenal mass is seen. The osseous structures are normal. IMPRESSION: No pulmonary embolism or aortic dissection. No gross pneumonia. 10 mm poorly marginated pleural-based nodular density superior segment right lo wer lobe. Question early round pneumonia. Follow-up is recommended. .Rui Alfred MD, Date Time Electronically viewed and signed by .Rui Alfred MD, on 01/01/2017 21:25 .A/
[2017-01-01 21:41] LABS: ADD UMIC YES; UR ASCORBIC ACID NEGATIVE (NEGATIVE); UR BACTERIA FEW /HPF (NONE SEEN); UR BILIRUBIN (Dip) NEGATIVE (NEGATIVE); UR BLOOD (Dip) 3+ mg/dL (NEGATIVE); UR CLARITY SLIGHTLY CLOUDY (CLEAR); UR COLOR YELLOW (YELLOW); UR GLUCOSE (Dip) NEGATIVE (NEGATIVE); UR KETONES (Dip) NEGATIVE (NEGATIVE); UR LEUKOCYTE ESTERASE (Dip) 3+ Leu/ul (NEGATIVE); UR NITRITE (Dip) NEGATIVE (NEGATIVE); UR RBC > 182 /HPF (0-5); UR SPECIFIC GRAVITY (Dip) 1.009 (1.003-1.030); UR SQUAMOUS EPITHELIAL CELL MODERATE /HPF (FEW); UR TOTAL PROTEIN (Dip) 1+ mg/dl (NEGATIVE); UR UROBILINOGEN (Dip) NEGATIVE (NEGATIVE)
[2017-01-01] MEDS ORDERED: AZIT250T94 PO (21:41)
[2017-01-01] MEDS ORDERED: ALBU18HF INHALATION (21:41)
--- NOTE | 2017-01-01 21:59 | ERD ---
ER Documentation Chief Complaint Date/Time DATE: 01/01/17 TIME: 21:56 Chief Complaint BIBA RA39, SOB, O2 sat 70% at home,bilat lower chest pain per pt verbatim HPI Patient is a 21-year-old female with no medical problems who presents with shortness of breath and chest pain. The patient was brought in by ambulance. The patient recently had a emergency performed on December 20. When the paramedics arrived at her house they said her O2 saturation was 70-80%. She was given high flow nasal cannula oxygen by paramedics. She has had pain since the surgery but says that the pain was worse today. She said that she had fevers last night which was subjective as she did not take her temperature. Upon review of old medical records this is the patient's fourth visit to the ER since July 30, 2016 and review of the emergency department information exchange system shows visits to 2 separate emergency departments. ROS All systems reviewed and are negative except as per history of present illness. Medications Home Meds Active Scripts Albuterol Sulfate* (Ventolin HFA*) 18 Gm Hfa.aer.ad, 2 PUFF INHALATION Q4H, #1 INHALER Prov:VIOLETTE MICHELE MD 01/01/17 Azithromycin* (Zithromax*) 250 Mg Tablet, 250 MG PO DAILY for 4 Days, TAB Prov:VIOLETTE MICHELE MD 01/01/17 Famotidine* (Pepcid*) 20 Mg Tablet, 20 MG PO BID, #60 TAB Prov:CAS CHACON COMMISSARY ASSISTANT 08/03/16 Ondansetron (Ondansetron Odt) 4 Mg Tab.rapdis, 4 MG PO Q8 Y for NAUSEA AND/OR VOMITING, #30 TAB Prov:CAS CHACON COMMISSARY ASSISTANT 08/03/16 Ondansetron Hcl* (Zofran*) 4 Mg Tablet, 4 MG PO Q6H Y for NAUSEA, #30 TAB Prov:FERMIN CERDA 07/30/16 Clindamycin Hcl* (Clindamycin Hcl*) 300 Mg Capsule, 300 MG PO TID for 10 Days, CAP Prov:FERMIN CERDA 07/30/16 Allergies Allergies: Coded Allergies: No Known Allergy (Unverified , 08/02/16) PMhx/Soc History of Surgery: Yes (D&C) Anesthesia Reaction: No Hx Neurological Disorder: No Hx Respiratory Disorders: No Hx Cardiac Disorders: No Hx Psychiatric Problems: No Hx Miscellaneous Medical Probl: No Hx Alcohol Use: No Hx Substance Use: No Hx Tobacco Use: No Smoking Status: Never smoker FmHx Family History: No diabetes Physical Exam Vitals Vital Signs Date Time Temp Pulse Resp B/P Pulse Ox O2 Delivery O2 Flow Rate FiO2 01/01/17 21:01 80 17 107/59 94 Room Air 01/01/17 19:30 99.1 69 18 114/64 100 Physical Exam Const: Moderate distress secondary to shortness of breath Head: Atraumatic Eyes: Normal Conjunctiva ENT: Normal External Ears, Nose and Mouth. Neck: Full range of motion..~ No meningismus. Resp: Clear to auscultation bilaterally Cardio: Regular rate and rhythm, no murmurs Abd: Soft, non tender, non distended. Normal bowel sounds Skin: No petechiae or rashes Back: No midline or flank tenderness Ext: No cyanosis, or edema Neur: Awake and alert Psych: Normal Mood and Affect Result Diagram: 01/01/17193401/01/171934 Results 24 hrs Laboratory Tests Test 01/01/17 19:35 01/01/17 21:01 White Blood Count 8.010^3/ul Red Blood Count 3.5910^6/ul Hemoglobin 10.5g/dl Hematocrit 32.4% Mean Corpuscular Volume 90.3fl Mean Corpuscular Hemoglobin 29.2pg Mean Corpuscular Hemoglobin Concent 32.4g/dl Red Cell Distribution Width 12.8% Platelet Count 78331^3/UL Mean Platelet Volume 11.2fl Neutrophils % 49.3% Lymphocytes % 43.1% Monocytes % 5.2% Eosinophils % 2.0% Basophils % 0.2% Nucleated Red Blood Cells % 0.0/100WBC Neutrophils # 3.910^3/ul Lymphocytes # 3.510^3/ul Monocytes # 0.410^3/ul Eosinophils # 0.210^3/ul Basophils # 0.010^3/ul Nucleated Red Blood Cells # 0.010^3/ul Prothrombin Time 13.2Sec Prothrombin Time Ratio 1.0 INR International Normalized Ratio 1.00 Activated Partial Thromboplast Time 25.7Sec Sodium Level 143mmol/L Potassium Level 3.8mmol/L Chloride Level 102mmol/L Carbon Dioxide Level 26mmol/L Anion Gap 19 Blood Urea Nitrogen 14mg/dl Creatinine 0.60mg/dl Glucose Level 106mg/dl Calcium Level 9.4mg/dl Total Bilirubin 0.1mg/dl Direct Bilirubin 0.00mg/dl Indirect Bilirubin 0.1mg/dl Aspartate Amino Transf (AST/SGOT) 37IU/L Alanine Aminotransferase (ALT/SGPT) 36IU/L Alkaline Phosphatase 74IU/L Troponin I < 0.012ng/ml Total Protein 7.8g/dl Albumin 3.8g/dl Globulin 4.00g/dl Albumin/Globulin Ratio 0.95 Lipase 182U/L Urine Color YELLOW Urine Clarity SLIGHTLY CLOUDY Urine pH 9.0 Urine Specific [employer] 1.009 Urine Ketones NEGATIVEmg/dL Urine Nitrite NEGATIVEmg/dL Urine Bilirubin NEGATIVEmg/dL Urine Urobilinogen NEGATIVEmg/dL Urine Leukocyte Esterase 3+Telly/ul Urine Microscopic RBC > 182/HPF Urine Microscopic WBC 59/HPF Urine Squamous Epithelial Cells MODERATE/HPF Urine Bacteria FEW/HPF Urine Hemoglobin 3+mg/dL Urine Glucose NEGATIVEmg/dL Urine Total Protein 1+mg/dl Current Medications Medications (Trade) Dose Ordered Sig/Kyle Route PRN Reason Start Time Stop Time Status Last Admin Dose Admin Sodium Chloride (NS) 1,000 ml @ 1,000 mls/hr Q1H STAT IV 01/01/17 19:30 01/01/17 20:29 DC 01/01/17 19:42 Morphine Sulfate (morphine) 4 mg ONCE STAT IV 01/01/17 19:30 01/01/17 19:32 DC 01/01/17 19:43 Ondansetron HCl (Zofran Inj) 4 mg ONCE STAT IV 01/01/17 19:30 01/01/17 19:33 DC 01/01/17 19:43 IV Flush 10 ml 10 ml STK-MED ONCE .ROUTE 01/01/17 20:38 01/01/17 20:39 DC 01/01/17 21:21 Sodium Chloride 100 ml @ ud STK-MED ONCE .ROUTE 01/01/17 20:38 01/01/17 20:39 DC 01/01/17 21:21 Iohexol (Omnipaque) 100 ml @ ud STK-MED ONCE .ROUTE 01/01/17 20:38 01/01/17 20:39 DC 01/01/17 21:21 Azithromycin (Zithromax) 500 mg ONCE ONCE PO 01/01/17 22:00 01/01/17 22:01 Procedures/MDM CTA of the chest shows no pulmonary embolism per radiology but it does show a early round pneumonia. Chest x-ray negative per radiology. EKG read by me: Rate/Rhythm: Regular rate and rhythm at a normal rate Intervals: Normal Impression: No evidence of ischemia or arrhythmia Patient is a 21-year-old female with no medical problems who presents with chest pain and shortness of breath. Given her recent I was concerned about pulmonary embolism and therefore a full workup was done including laboratory studies, EKG, chest x-ray, and CTA of the chest. Her workup showed a early round pneumonia but the patient is now satting 100% without supplemental oxygen. She is well-appearing and well-hydrated. I do not believe that she requires admission to the hospital at this time. I doubt pulmonary embolism or pneumothorax. I doubt acute coronary syndrome. I doubt aortic dissection. The patient will be given 5 days of Zithromax and the first dose was given in the emergency department. She will also be given a prescription for Ventolin. She should follow-up with her primary doctor within 24-48 hours for reevaluation. Departure Diagnosis: Primary Impression: Pneumonia Pneumonia type: due to unspecified organism Laterality: unspecified laterality Lung location: unspecified part of lung Qualified Code: J18.9 - Pneumonia due to infectious organism, unspecified laterality, unspecified part of lung Additional Impressions: Shortness of breath Chest pain Chest pain type: unspecified Qualified Code: R07.9 - Chest pain, unspecified type Condition: Fair Patient Instructions: Pneumonia (Adult) Referrals: KRISTIN LAINEZ (PCP) Additional Instructions: Call your primary care doctor TOMORROW for an appointment during the next 1-2 days.See the doctor sooner or return here if your condition worsens before your appointment time. VIOLETTE MICHELE MD Jan 01, 2017 21:59
[2017-01-01] MEDS ORDERED: AZITHROMYCIN 250 MG TAB PO ONE (22:00)
[2017-01-01 22:24] VITALS: BP 109/51; PULSE 81; RESP 18; TEMP 98.1
== END 2017-01-01 22:28 | disposition home or self-care (01) ==
LOC: E/R 19:25
DX: O99.53 Diseases of the respiratory system complicating the puerperium (principal); J18.9 Pneumonia, unspecified organism; R06.02 Shortness of breath; R07.9 Chest pain, unspecified
CPT/HCPCS: 36415; 71010; 71275; 76705; 80053; 81001; 83690; 84484; 85025; 85610; 85730; 93005; 96374; 96375; J2270; J2405; J7030; Q9967; Z7502; Z7610

== ENCOUNTER 2017-01-09 02:41 | Emergency (ER) | payer OTHER ==
[~2017-01-09] VITALS: Ht 172.7 cm; Wt 72.0 kg
[~2017-01-09 02:41] MED LIST changes: +ALBU18HF INHALATION; +AZIT250T94 PO; +CEPH-443 PO; +DOXY1TAB3 PO; +LIDO20SO19 PO; +METO10TA92 PO; +ONDA8TAB14 PO; +PREN1TAB79 PO; +PROM25TA14 PR; +RANI150T9 PO
[2017-01-09 02:51] VITALS: Ht 172.7 cm; Wt 72.0 kg
[2017-01-09] MEDS ORDERED: ALBUTEROL 0.083% (NEB) 2.5 MG/3 ML AMP NEB STA (03:18)
[2017-01-09] MEDS ORDERED: IPRATROPIUM (NEB) 0.5 MG/2.5 ML AMP NEB STA (03:18)
[2017-01-09] MEDS ORDERED: LIDOCAINE/MYLANTA 40 ML BTL PO ONE (03:30)
[2017-01-09] MEDS ORDERED: HYDROCODONE/APAP (5/325) TAB PO ONE (03:30)
--- NOTE | 2017-01-09 03:40 | ERD ---
ER Documentation Chief Complaint Date/Time DATE: 01/09/17 TIME: 03:38 Chief Complaint cp and sob HPI 21-year-old female presents here in emergency department for complaints of chest pain for 2 weeks now. Patient is complaining of mid chest pain sharp pain , 6/10 scale, is worse upon taking a deep breath, it got worse tonight. Patient did not take any medications for pain. Patient was seen here 8 days ago, was diagnosed a possible have early pneumonia, patient finished antibiotics given. Patient denies any wheezing, has been using albuterol given to her with only mild relief. Patient states that she did feel some relief of pain 3 days after being on antibiotics but pain got worse again tonight. Patient does admit to be feeling acid reflux at times, the pain gets worse after eating. ROS All systems reviewed and are negative except as per history of present illness. Medications Home Meds Active Scripts Albuterol Sulfate* (Ventolin HFA*) 18 Gm Hfa.aer.ad, 2 PUFF INHALATION Q4H, #1 INHALER Prov:VIOLETTE MICHELE MD 01/01/17 Azithromycin* (Zithromax*) 250 Mg Tablet, 250 MG PO DAILY for 4 Days, TAB Prov:VIOLETTE MICHELE MD 01/01/17 Famotidine* (Pepcid*) 20 Mg Tablet, 20 MG PO BID, #60 TAB Prov:CAS CHACON NP 08/03/16 Ondansetron (Ondansetron Odt) 4 Mg Tab.rapdis, 4 MG PO Q8 Y for NAUSEA AND/OR VOMITING, #30 TAB Prov:CAS CHACON NP 08/03/16 Ondansetron Hcl* (Zofran*) 4 Mg Tablet, 4 MG PO Q6H Y for NAUSEA, #30 TAB Prov:FERMIN CERDA 07/30/16 Clindamycin Hcl* (Clindamycin Hcl*) 300 Mg Capsule, 300 MG PO TID for 10 Days, CAP Prov:FERMIN CERDA F 07/30/16 Allergies Allergies: Coded Allergies: No Known Allergy (Unverified , 08/02/16) PMhx/Soc History of Surgery: Yes (D&C, section) Anesthesia Reaction: No Hx Neurological Disorder: No Hx Respiratory Disorders: No Hx Cardiac Disorders: No Hx Psychiatric Problems: No Hx Miscellaneous Medical Probl: No Hx Alcohol Use: No Hx Substance Use: No Hx Tobacco Use: No Smoking Status: Never smoker FmHx Family History: No coronary disease, No diabetes, No other Physical Exam Vitals Vital Signs Date Time Temp Pulse Resp B/P Pulse Ox O2 Delivery O2 Flow Rate FiO2 01/09/17 03:49 71 20 100 21 01/09/17 02:51 98.3 83 24 127/69 100 Physical Exam GENERAL: The patient is well developed and appropriate for usual state of health, in no apparent distress. CHEST: Clear to auscultation bilaterally. There are no rales, wheezes or rhonchi. HEART: Regular rate and rhythm. No murmurs, clicks, rubs or gallops. No S3 or S4. ABDOMEN: Soft, nontender and nondistended. Good bowel sounds. No rebound or guarding. No gross peritonitis. No gross organomegaly or masses. No Zarco sign or McBurney point tenderness. BACK: No midline or flank tenderness. EXTREMITIES: Equal pulses bilaterally. There is no peripheral clubbing, cyanosis or edema. No focal swelling or erythema. Full range of motion. Grossly neurovascularly intact. NEURO: Alert and oriented. Cranial nerves 2-12 intact. Motor strength in all 4 extremities with 5/5 strength. Sensation grossly intact. Normal speech and gait. SKIN: There is no apparent rash or petechia. The skin is warm and dry. HEMATOLOGIC AND LYMPHATIC: There is no evidence of excessive bruising or lymphedema. No gross cervical, axillary, or inguinal lymphadenopathy. Results 24 hrs Current Medications Medications (Trade) Dose Ordered Sig/Kyle Route PRN Reason Start Time Stop Time Status Last Admin Dose Admin Albuterol (Proventil 0.083% (Neb)) 5 mg ONCE STAT NEB 01/09/17 03:18 01/09/17 03:21 DC 01/09/17 03:48 Ipratropium [place] (Atrovent 0.02% (Neb)) 0.5 mg ONCE STAT NEB 01/09/17 03:18 01/09/17 03:21 DC 01/09/17 03:48 Acetaminophen/ Hydrocodone Bitart ([place] (5/325)) 1 tab ONCE ONCE PO 01/09/17 03:30 01/09/17 03:31 DC 01/09/17 03:45 Miscellaneous Medication (Gi Cocktail (2)) 40 ml ONCE ONCE PO 01/09/17 03:30 01/09/17 03:31 DC 01/09/17 03:45 Patient was given medication for pain here in emergency department, after treatment, patient verbalized feeling much better. Patient's pain is improved. GI cocktail was given here in emergency department.Breathing treatment of albuterol and Atrovent was given here in emergency department, after treatment, patient's lungs sounds are clear and patient's oxygenation is better. Patient verbalized feeling much better. EKG was done, read by me and is sinus bradycardia with sinus arrhythmia at a rate of 56, normal axis, there is no ST changes or changes in the EKG that indicates any cardiac emergencies at this time. Patient's EKG was also reviewed by Dr. Michele. Impression: no acute findings on EKG PROCEDURE: XR Chest. CLINICAL INDICATION: Cough TECHNIQUE: AP Portable chest. COMPARISON: 01/01/2017 FINDINGS: The cardiomediastinal silhouette is normal. The lungs are clear. The osseous structures are unremarkable. IMPRESSION: No acute findings. RPTAT: HIKT .Duran Garcia MD, MD Date Time Electronically viewed and signed by .Duran Garcia MD, MD on 01/09/2017 05:02 .T/ CC: CAS CHACON CONCRETE POLISHER Procedures/MDM Medical Decision Making: Patient symptoms of chest pain and shortness of breath , nonspecific at this time, most likely from healing pneumonia, the pneumonia seen in the previous x-rays is not seen anymore. Patient was also given a GI cocktail here in emergency department, and verbalizes feeling much better after treatment There is low suspicion for cardiopulmonary emergencies at this time. Patient has low risk factors. EKG is normal, there is no changes in the EKG that indicates cardiac emergencies. Chest X-ray does not show cardiopulmonary emergencies at this time. There is low suspicion for aortic aneurysm, myocardial infarction, pneumothorax, pleural effusion, pulmonary embolism, or any other cardiopulmonary emergencies at this time. Patient was given for ranitidine, Mylanta, is advised to see primary care doctor in next 2-3 days for reevaluation of symptoms. Patient is advised to return to emergency department for any worsening symptoms. Dispostion: Home. Stable Departure Diagnosis: Primary Impression: Atypical chest pain Condition: Stable Patient Instructions: Chest Pain, Uncertain Cause CAS CHACON NP Jan 09, 2017 03:40
--- NOTE | 2017-01-09 05:02 | RADRPT ---
PROCEDURE: XR Chest. CLINICAL INDICATION: Cough TECHNIQUE: AP Portable chest. COMPARISON: 01/01/2017 FINDINGS: The cardiomediastinal silhouette is normal. The lungs are clear. The osseous structures are unrema rkable. IMPRESSION: No acute findings. RPTAT: HIKT .Duran Garcia MD, MD Date Time Electronically viewed and signed by .Duran Garcia MD, on 01/09/2017 05:02 .T/
[2017-01-09] MEDS ORDERED: RANI150T9 PO (05:23)
[2017-01-09] MEDS ORDERED: MAG-19 PO (05:23)
== END 2017-01-09 05:54 | disposition home or self-care (01) ==
LOC: FTE 02:41
DX: R07.89 Other chest pain (principal); R06.02 Shortness of breath
CPT/HCPCS: 71010; 93005; 94664; Z7502; Z7610

== ENCOUNTER 2017-01-23 21:03 | Emergency (ER) | payer OTHER ==
[~2017-01-23] VITALS: Ht 170.2 cm; Wt 71.0 kg
[~2017-01-23 21:03] MED LIST changes: +MAG-19 PO
[2017-01-23 21:07] VITALS: Ht 170.2 cm; Wt 71.0 kg
[2017-01-23] MEDS ORDERED: ONDANSETRON (ODT) 4 MG TAB ODT STA (21:38)
--- NOTE | 2017-01-23 21:59 | ERD ---
ER Documentation Chief Complaint Date/Time DATE: 01/23/17 TIME: 21:54 Chief Complaint upper abd pain x 1 year on and off, vomiting HPI 21-year-old female presents to emergency department for vomiting and diarrhea for 2 days. Patient has had a history of epigastric pain, has chronic gastritis , had multiple testing done for this already before, still waiting for an appointment with GI specialist. Patient had a family member who got sick at home with a viral infection. Patient started to have vomiting and diarrhea started 2 days ago, had 3 episodes of vomiting, the episodes of diarrhea. Patient does not have any blood in the stool or black stool. Patient did not have any blood in the vomit. Patient does not have any fever or chills. Patient ran out of her Mylanta and once refill of it. ROS All systems reviewed and are negative except as per history of present illness. Medications Home Meds Active Scripts Ranitidine Hcl* (Zantac*) 150 Mg Tablet, 150 MG PO BID Y for EPIGASTRIC PAIN, # 30 TAB Prov:CAS CHACON NP 01/09/17 Magaldrate/Simethicone* (Mylanta*) 355 Ml Susp, 30 ML PO QID Y for GASTROINTESTINAL UPSET, #1 BOTTLE Prov:CAS CHACON NP 01/09/17 Albuterol Sulfate* (Ventolin HFA*) 18 Gm Hfa.aer.ad, 2 PUFF INHALATION Q4H, #1 INHALER Prov:VIOLETTE MICHELE MD 01/01/17 Azithromycin* (Zithromax*) 250 Mg Tablet, 250 MG PO DAILY for 4 Days, TAB Prov:VIOLETTE MICHELE MD 01/01/17 Cephalexin* (Keflex*) 500 Mg Capsule, 500 MG PO QID for 7 Days, CAP Prov:HAWK ANSARI PA-C 08/26/16 Metoclopramide* (Reglan*) 10 Mg Tablet, 10 MG PO Q6 Y for NAUSEA AND/OR VOMITING , #20 TAB Prov:HAWK ANSARI-C 08/26/16 Vit W-Ca,Fe,FA(<1 mg) ( Vitamins) 1 Each Tablet, 1 EACH PO DAILY, #30 TAB Prov:HAWK ANSARI PA-C 08/26/16 Cephalexin* (Keflex*) 500 Mg Capsule, 500 MG PO QID for 7 Days, CAP Prov:AMY SANDOVAL DO 08/11/16 Lidocaine (Lidocaine Viscous) 100 Ml Soln, 15 ML PO q 2-3 hours for throat pain , #120 ML Prov:AMY SANDOVAL DO 08/11/16 Ranitidine Hcl* (Zantac*) 150 Mg Tablet, 150 MG PO BID, #30 TAB Prov:AMY SANDOVAL DO 08/11/16 Ondansetron (Ondansetron Odt) 8 Mg Tab.rapdis, 8 MG PO Q6H Y for NAUSEA AND/OR VOMITING, #20 TAB Prov:AMY SANDOVAL DO 08/11/16 Promethazine Hcl* (Phenergan*) 25 Mg Tablet, 25 MG WI Q6H Y for vomit, #14 TAB can insert 2 - 1 suppository Prov:AMY SANDOVAL DO 08/11/16 Famotidine* (Pepcid*) 20 Mg Tablet, 20 MG PO BID, #60 TAB Prov:CAS CHACON. [employer] SUPERINTENDENT 08/03/16 Ondansetron (Ondansetron Odt) 4 Mg Tab.rapdis, 4 MG PO Q8 Y for NAUSEA AND/OR VOMITING, #30 TAB Prov:CAS CHACON. [employer] SUPERINTENDENT 08/03/16 Ondansetron Hcl* (Zofran*) 4 Mg Tablet, 4 MG PO Q6H Y for NAUSEA, #30 TAB Prov:FERMIN CERDA 07/30/16 Clindamycin Hcl* (Clindamycin Hcl*) 300 Mg Capsule, 300 MG PO TID for 10 Days, CAP Prov:PASILABANESSENCEAR F 07/30/16 Reported Medications Doxylamine/Pyridoxine Hcl (KORI AHUJA 10-10 MG TABLET) 1 Each Tablet.dr, 2 TAB PO QHS, TAB 08/11/16 Allergies Allergies: Coded Allergies: No Known Allergy (Unverified , 08/02/16) PMhx/Soc History of Surgery: Yes () Anesthesia Reaction: No Hx Neurological Disorder: No Hx Respiratory Disorders: No Hx Cardiac Disorders: No Hx Psychiatric Problems: No Hx Miscellaneous Medical Probl: Yes (GASTRITIS) Hx Alcohol Use: No Hx Substance Use: No Hx Tobacco Use: No Smoking Status: Never smoker FmHx Family History: No coronary disease, No diabetes, No other Physical Exam Vitals Vital Signs Date Time Temp Pulse Resp B/P Pulse Ox O2 Delivery O2 Flow Rate FiO2 01/23/17 21:07 97.7 66 20 115/67 100 Physical Exam GENERAL: The patient is well developed and appropriate for usual state of health, in no apparent distress. CHEST: Clear to auscultation bilaterally. There are no rales, wheezes or rhonchi. HEART: Regular rate and rhythm. No murmurs, clicks, rubs or gallops. No S3 or S4. ABDOMEN: Soft, nontender and nondistended. Hyperactive bowel sounds. No rebound or guarding. No gross peritonitis. No gross organomegaly or masses. No Zarco sign or McBurney point tenderness. BACK: No midline or flank tenderness. EXTREMITIES: Equal pulses bilaterally. There is no peripheral clubbing, cyanosis or edema. No focal swelling or erythema. Full range of motion. Grossly neurovascularly intact. NEURO: Alert and oriented. Cranial nerves 2-12 intact. Motor strength in all 4 extremities with 5/5 strength. Sensation grossly intact. Normal speech and gait. SKIN: There is no apparent rash or petechia. The skin is warm and dry. HEMATOLOGIC AND LYMPHATIC: There is no evidence of excessive bruising or lymphedema. No gross cervical, axillary, or inguinal lymphadenopathy. Results 24 hrs Current Medications Medications (Trade) Dose Ordered Sig/Kyle Route PRN Reason Start Time Stop Time Status Last Admin Dose Admin Acetaminophen/ Hydrocodone Bitart ([place] (5/325)) 1 tab ONCE ONCE PO 01/23/17 22:00 01/23/17 22:01 01/23/17 21:47 Ondansetron HCl (Zofran Odt) 4 mg ONCE STAT ODT 01/23/17 21:38 01/23/17 21:40 DC 01/23/17 21:47 Dicyclomine HCl (Bentyl) 20 mg ONCE ONCE PO 01/23/17 22:00 01/23/17 22:01 01/23/17 21:47 Patient was given medication for pain here in emergency department, after treatment, patient verbalized feeling much better. Patient's pain is improved.Patient was given Zofran here in the emergency department. After treatment, patient was able to tolerate po fluids here in the emergency department without any vomiting. There is no signs and symptoms of dehydration. Procedures/MDM Medical Decision Making: Patient's symptoms suspect is consistent with viral gastroenteritis with her chronic gastritis. No symptoms of dehydration at this time. Patient's able to tolerate oral fluids. There is low suspicion for abdominal emergencies at this time. Patients abdominal exam is normal at this time. Laboratory testing or radiology exam is not indicated at this time. There is low suspicion for appendicitis, cholecystitis, abdominal aortic aneurysms or peritonitis at this time. There is low suspicion for sepsis. Patient appears well and is hemodynamically stable. Disposition: Home. Condition: Stable Prescription Zofran, Bentyl, Mylanta, Ranitidine Instructions: Patient is advised to take medications as prescribed. Patient is advised to rest, increase fluid intake and do brat diet for next 1-2 days and progress as tolerated. Patient is advised that if symptoms are worse, severe abdominal pain, uncontrolled vomiting, high fever, severe flank pain, worst signs and symptoms, to return to the emergency department immediately. Otherwise, patient can follow up with primary care doctor in 5-7 days. Departure Diagnosis: Primary Impression: Viral gastroenteritis Additional Impression: Gastritis Gastritis type: unspecified gastritis Chronicity: chronic Gastritis bleeding: without bleeding Qualified Code: K29.50 - Chronic gastritis without bleeding, unspecified gastritis type Condition: Stable Patient Instructions: Gastritis (Adult), Gastroenteritis, Viral (6Y-Adult) Additional Instructions: Patient is advised to take medications as prescribed. Patient is advised to rest , increase fluid intake and do brat diet for next 1-2 days and progress as tolerated. Patient is advised that if symptoms are worse, severe abdominal pain , uncontrolled vomiting, high fever, severe flank pain, worst signs and symptoms , to return to the emergency department immediately. Otherwise, patient can follow up with primary care doctor in 5-7 days. CAS CHACON NP Jan 23, 2017 21:59
[2017-01-23] MEDS ORDERED: DICY10CA60 PO (22:00)
[2017-01-23] MEDS ORDERED: RANI150T9 PO (22:00)
[2017-01-23] MEDS ORDERED: MAG-19 PO (22:00)
[2017-01-23] MEDS ORDERED: DICYCLOMINE 10 MG CAP PO ONE (22:00)
[2017-01-23] MEDS ORDERED: HYDROCODONE/APAP (5/325) TAB PO ONE (22:00)
[2017-01-23] MEDS ORDERED: ONDA4TAB14 PO (22:00)
[2017-01-23 22:03] VITALS: BP 118/71; PULSE 79; RESP 20; TEMP 98
== END 2017-01-23 22:09 | disposition home or self-care (01) ==
LOC: FTE 21:03
DX: A08.4 Viral intestinal infection, unspecified (principal); K29.50 Unspecified chronic gastritis without bleeding
CPT/HCPCS: Z7502; Z7610; 99284

== ENCOUNTER 2017-05-14 14:20 | Emergency (ER) | payer OTHER ==
[~2017-05-14] VITALS: Ht 172.7 cm; Wt 60.0 kg
[~2017-05-14 14:20] MED LIST changes: +DICY10CA60 PO
[2017-05-14 14:28] VITALS: Ht 172.7 cm; Wt 60.0 kg
[2017-05-14] MEDS ORDERED: NA PHOSPHATE/BIPHOS 133 ML ENEMA PR ONE (15:00)
[2017-05-14] MEDS ORDERED: PYRI50TA80 PO (16:33)
[2017-05-14] MEDS ORDERED: DOCU100C26 PO (16:34)
[2017-05-14] MEDS ORDERED: FOLI-49 PO (16:34)
--- NOTE | 2017-05-14 17:38 | ERD ---
ER Documentation Chief Complaint Chief Complaint BIB [facility] FOR EVAL OF NO BM X 6 DAYS. PT 10 WEEKS PREG. HPI This is a 22-year-old female who is here for constipation. She is 10 weeks having no pelvic pain or vaginal bleeding. The patient states she has 1 bowel movement every 6 days. She says she has been pushing for 4 hours only passing some small balls nothing will come out. She says she is desperate to have a bowel movement. She is not passing any blood. She says her last bowel movement was 4 days ago. No abdominal pain chest pain shortness of breath ROS All systems reviewed and are negative except as per history of present illness. Medications Home Meds Active Scripts Metoclopramide* (Reglan*) 10 Mg Tablet, 10 MG PO Q6 Y for NAUSEA AND/OR VOMITING , #20 TAB Prov:HAWK ANSARI PA-C 08/26/16 Vit W-Ca,Fe,FA(<1 mg) ( Vitamins) 1 Each Tablet, 1 EACH PO DAILY, #30 TAB Prov:HAWK ANSARI PA-C 08/26/16 Ondansetron (Ondansetron Odt) 8 Mg Tab.rapdis, 8 MG PO Q6H Y for NAUSEA AND/OR VOMITING, #20 TAB Prov:AMY SANDOVAL DO 08/11/16 Reported Medications Docusate Sodium* (Doc-Q-Lace*) 100 Mg Capsule, 100 MG PO DAILY Y for CONSTIPATION, CAP 05/14/17 Folic Acid* (Folic Acid*) 1 Mg Tablet, 1 MG PO DAILY, TAB 05/14/17 Pyridoxine Hcl (Vitamin B6) 50 Mg Tab, 50 MG PO DAILY, TAB 05/14/17 Discontinued Reported Medications Doxylamine/Pyridoxine Hcl (KORI AHUJA 10-10 MG TABLET) 1 Each Tablet.dr, 2 TAB PO QHS, TAB 08/11/16 Discontinued Scripts Ranitidine Hcl* (Zantac*) 150 Mg Tablet, 150 MG PO BID Y for EPIGASTRIC PAIN, # 30 TAB Prov:CAS CHACON NP 01/23/17 Ondansetron (Ondansetron Odt) 4 Mg Tab.rapdis, 4 MG PO Q8 Y for NAUSEA AND/OR VOMITING, #30 TAB Prov:CAS CHACON REPAIRER GENERAL 01/23/17 Dicyclomine Hcl* (Bentyl*) 10 Mg Capsule, 20 MG PO QID, #20 CAP Prov:CAS CHACON REPAIRER GENERAL 01/23/17 Magaldrate/Simethicone* (Mylanta*) 355 Ml Susp, 30 ML PO QID Y for GASTROINTESTINAL UPSET, #1 BOTTLE Prov:CAS CHACON REPAIRER GENERAL 01/23/17 Ranitidine Hcl* (Zantac*) 150 Mg Tablet, 150 MG PO BID Y for EPIGASTRIC PAIN, # 30 TAB Prov:CAS CHACON REPAIRER GENERAL 01/09/17 Magaldrate/Simethicone* (Mylanta*) 355 Ml Susp, 30 ML PO QID Y for GASTROINTESTINAL UPSET, #1 BOTTLE Prov:CAS CHACON REPAIRER GENERAL 01/09/17 Albuterol Sulfate* (Ventolin HFA*) 18 Gm Hfa.aer.ad, 2 PUFF INHALATION Q4H, #1 INHALER Prov:VIOLETTE MICHELE MD 01/01/17 Azithromycin* (Zithromax*) 250 Mg Tablet, 250 MG PO DAILY for 4 Days, TAB Prov:VIOLETTE MICHELE MD 01/01/17 Cephalexin* (Keflex*) 500 Mg Capsule, 500 MG PO QID for 7 Days, CAP Prov:HAWK ANSARI PA-C 08/26/16 Cephalexin* (Keflex*) 500 Mg Capsule, 500 MG PO QID for 7 Days, CAP Prov:AMY SANDOVAL DO 08/11/16 Lidocaine (Lidocaine Viscous) 100 Ml Soln, 15 ML PO q 2-3 hours for throat pain , #120 ML Prov:AMY SANDOVAL DO 08/11/16 Ranitidine Hcl* (Zantac*) 150 Mg Tablet, 150 MG PO BID, #30 TAB Prov:AMY SANDOVAL DO 08/11/16 Promethazine Hcl* (Phenergan*) 25 Mg Tablet, 25 MG NE Q6H Y for vomit, #14 TAB can insert 2 - 1 suppository Prov:AMY SANDOVAL DO 08/11/16 Famotidine* (Pepcid*) 20 Mg Tablet, 20 MG PO BID, #60 TAB Prov:CAS CHACON REPAIRER GENERAL 08/03/16 Ondansetron (Ondansetron Odt) 4 Mg Tab.rapdis, 4 MG PO Q8 Y for NAUSEA AND/OR VOMITING, #30 TAB Prov:MELISAMERCEDESCAS JOSE Cardoso REPAIRER GENERAL 08/03/16 Ondansetron Hcl* (Zofran*) 4 Mg Tablet, 4 MG PO Q6H Y for NAUSEA, #30 TAB Prov:FERMIN CERDA 07/30/16 Clindamycin Hcl* (Clindamycin Hcl*) 300 Mg Capsule, 300 MG PO TID for 10 Days, CAP Prov:FERMIN CERDA F 07/30/16 Allergies Allergies: Coded Allergies: No Known Allergy (Unverified , 05/14/17) PMhx/Soc History of Surgery: Yes () Anesthesia Reaction: No Hx Neurological Disorder: No Hx Respiratory Disorders: No Hx Cardiac Disorders: No Hx Psychiatric Problems: No Hx Miscellaneous Medical Probl: Yes (GASTRITIS) Hx Alcohol Use: No Hx Substance Use: No Hx Tobacco Use: No Smoking Status: Never smoker FmHx Family History: No coronary disease Physical Exam Vitals Vital Signs Date Time Temp Pulse Resp B/P Pulse Ox O2 Delivery O2 Flow Rate FiO2 05/14/17 16:07 55 109/75 92 Room Air 05/14/17 14:28 97.8 90 20 128/62 99 Physical Exam Const: Well-developed, well-nourished Head: Atraumatic, normocephalic Eyes: Normal Conjunctiva, PERRLA, EOMI, normal sclera, no nystagmus ENT: Normal External Ears, Nose and Mouth, moist mucus membranes. Neck: Full range of motion. No meningismus, no lymphadenopathy. Resp: Clear to auscultation bilaterally, no wheezing, rhonchi, rales Cardio: Regular rate and rhythm, no murmurs, S1 S2 present Abd: Soft, non tender x 4, non distended. Normal bowel sounds, no guarding or rebound, no pulsitile abdominal masses or bruits Skin: No petechiae or rashes, no ecchymosis , no maculopapular rash Back: No midline or flank tenderness Ext: No cyanosis, or edema, FROM x 4, normal inspection, neurovascularly intact x 4 Neur: Awake and alert, STR 5/5 x 4, sensation intact x 4, no focal findings, cerebellum intact Psych: Normal Mood and Affect Results 24 hrs Current Medications Medications (Trade) Dose Ordered Sig/Kyle Route PRN Reason Start Time Stop Time Status Last Admin Dose Admin Sodium Biphosphate/ Sodium Phosphate (Fleet Enema) 133 ml ONCE ONCE NE 05/14/17 15:00 05/14/17 15:01 DC 05/14/17 15:18 Procedures/MDM Patient was given a Fleet enema and had a successful bowel movement. Patient has Dulcolax at home to take Departure Diagnosis: Primary Impression: Constipation Constipation type: unspecified constipation type Qualified Code: K59.00 - Constipation, unspecified constipation type Condition: Stable Patient Instructions: Constipation (Adult) Referrals: DOCTOR,NOT ON STAFF (PCP) AMY SANDOVAL DO May 14, 2017 17:38
[2017-05-14 17:43] VITALS: BP 107/73; PULSE 89
== END 2017-05-14 17:50 | disposition home or self-care (01) ==
LOC: E/R 14:20
DX: O99.611 Diseases of the digestive system complicating pregnancy, first trimester (principal); R40.2252 Coma scale, best verbal response, oriented, at arrival to emergency department; K59.00 Constipation, unspecified; R40.2142 Coma scale, eyes open, spontaneous, at arrival to emergency department; R40.2362 Coma scale, best motor response, obeys commands, at arrival to emergency department; Z3A.10 10 weeks gestation of pregnancy
CPT/HCPCS: Z7502; Z7610; 99283

== ENCOUNTER 2017-07-30 14:38 | Outpatient (CLI) | END 2017-07-30 18:55 | disposition home or self-care (01) ==

== ENCOUNTER 2018-07-18 17:53 | Emergency (ER) | payer OTHER ==
[~2018-07-18] VITALS: Ht 162.6 cm; Wt 89.0 kg
[~2018-07-18 17:53] MED LIST changes: -ALBU18HF INHALATION; -AZIT250T94 PO; -CEPH-443 PO; -CLIN-73 PO; -DICY10CA60 PO; -DOXY1TAB3 PO; -FAMO-96 PO; +FOLI-49 PO; -LIDO20SO19 PO; -MAG-19 PO; -METO10TA92 PO; -ONDA4TAB14 PO; -ONDA4TAB8 PO; -ONDA8TAB14 PO; -PROM25TA14 PR; -RANI150T9 PO
[2018-07-18 18:10] VITALS: Ht 162.6 cm; Wt 89.0 kg
--- NOTE | 2018-07-18 19:49 | ERD ---
ER Documentation Chief Complaint Chief Complaint WORSENING AP AFTER EATING X 4 DAYS HPI 23-year-old female presents with epigastric pain for the past 5 days. States the pain is intermittent said it is worst it is 8 out of 10. Denies nausea, vomiting, diarrhea, fevers, flank pain, back pain. States she had this in the past. States she has a history of GERD for which she is taking some unknown medication that she got in [facility]. Has 2 C-sections. Denies social. Up-to-date. ROS All systems reviewed and are negative except as per history of present illness. Medications Home Meds Active Scripts Famotidine* (Pepcid*) 20 Mg Tablet, 20 MG PO BID for GERD for 4 Days, #20 TAB Prov:DEIDRA OROZCO 07/18/18 Vit W-Ca,Fe,FA(<1 mg) ( Vitamins) 1 Each Tablet, 1 EACH PO DAILY, #30 TAB Prov:HAWK ANSARI PA-C 08/26/16 Reported Medications Folic Acid* (Folic Acid*) 1 Mg Tablet, 1 MG PO DAILY, TAB 05/14/17 Allergies Allergies: Coded Allergies: No Known Allergy (Unverified , 05/14/17) PMhx/Soc History of Surgery: Yes () Anesthesia Reaction: No Hx Neurological Disorder: No Hx Respiratory Disorders: No Hx Cardiac Disorders: No Hx Psychiatric Problems: No Hx Miscellaneous Medical Probl: Yes (GASTRITIS) Hx Alcohol Use: No Hx Substance Use: No Hx Tobacco Use: No Smoking Status: Never smoker FmHx Family History: No diabetes, No coronary disease, No other Physical Exam Vitals Vital Signs Date Temp Pulse Resp B/P (MAP) Pulse Ox O2 O2 Flow FiO2 Time Delivery Rate 07/18/18 98.4 107 20 133/64 99 18:10 (87) 07/18/18 98.1 76 17 111/68 100 18:06 (82) Physical Exam Const: No acute distress Resp: Clear to auscultation bilaterally Cardio: Regular rate and rhythm, no murmurs Abd: Upper right and upper left quadrant tenderness. Positive Zarco's. Negative McBurney's tenderness. Patient able to jump up and down on exam. Soft, non tender, non distended. Normal bowel sounds Back: No midline or flank tenderness Neur: Awake and alert Psych: Normal Mood and Affect Result Diagram: 07/18/18193707/18/181937 Results 24 hrs Laboratory Tests Test 07/18/18 19:38 07/18/18 19:48 07/18/18 19:51 White Blood Count 10.1 10^3/ul Red Blood Count 4.49 10^6/ul Hemoglobin 11.7 g/dl Hematocrit 37.8 % Mean Corpuscular Volume 84.2 fl Mean Corpuscular Hemoglobin 26.1 pg Mean Corpuscular Hemoglobin Concent 31.0 g/dl Red Cell Distribution Width 14.2 % Platelet Count 320 10^3/UL Mean Platelet Volume 11.5 fl Immature Granulocytes % 0.300 % Neutrophils % 55.2 % Lymphocytes % 33.9 % Monocytes % 6.1 % Eosinophils % 4.2 % Basophils % 0.3 % Nucleated Red Blood Cells % 0.0 /100WBC Immature Granulocytes # 0.030 10^3/ul Neutrophils # 5.6 10^3/ul Lymphocytes # 3.4 10^3/ul Monocytes # 0.6 10^3/ul Eosinophils # 0.4 10^3/ul Basophils # 0.0 10^3/ul Nucleated Red Blood Cells # 0.0 10^3/ul Sodium Level 141 mmol/L Potassium Level 5.1 mmol/L Chloride Level 103 mmol/L Carbon Dioxide Level 25 mmol/L Anion Gap 13 Blood Urea Nitrogen 11 mg/dl Creatinine 0.43 mg/dl Est Glomerular Filtrat Rate mL/min > 60 mL/min Glucose Level 89 mg/dl Calcium Level 10.0 mg/dl Total Bilirubin 0.1 mg/dl Direct Bilirubin 0.00 mg/dl Indirect Bilirubin 0.1 mg/dl Aspartate Amino Transf (AST/SGOT) 34 IU/L Alanine Aminotransferase (ALT/SGPT) 19 IU/L Alkaline Phosphatase 78 IU/L Total Protein 9.6 g/dl Albumin 4.8 g/dl Globulin 4.80 g/dl Albumin/Globulin Ratio 1.00 Lipase 91 U/L POC Beta HCG, Qualitative NEGATIVE Bedside Glucose 82 mg/dL Procedures/MDM DIAGNOSTIC IMAGING REPORT Patient: KATHLEEN GALVEZ : 1995 Age: 23 Sex: F MR #: [id number] DOS: 07/18/18 0000 Ordering MD: DEIDRA OROZCO Location: [facility] Room/Bed: PROCEDURE: US Abdomen. CLINICAL INDICATION: abdominal pain TECHNIQUE: Multiple real-time images were acquired of the patient's right upper quadrant abdomen and retroperitoneum utilizing a high resolution transducer. COMPARISON: 01/01/17 FINDINGS: The liver demonstrates normal echogenicity. The liver is normal in size and no focal solid lesions are seen. The liver measures 13.9 cm in length. The portal vein is patent with normal direction of flow. No intrahepatic biliary dilatation is seen. No gallstones are identified within the gallbladder. There is no pericholecystic fluid or gallbladder wall thickening. The common bile duct measures 2 mm in maximal dimension. The visualized portions of the pancreas are unremarkable. The tail of the pancreas is not seen. No free fluid is identified. The right kidney is normal in size, and demonstrate normal echogenicity and cortical thickness. The right kidney measures 10.6 cm in long dimension. There is no evidence of hydronephrosis. There are no kidney stones. RPTAT: AA IMPRESSION: Unremarkable right upper quadrant abdominal ultrasound. .Rigo Quan MD, MD Date Time Electronically viewed and signed by .Rigo Quan MD, MD on 07/18/2018 20:17 .S/ CC: DEIDRA OROZCO [id number] ER Course: CBC, CMP, gallbladder ultrasound, accucheck, POC . All results within normal limits. MDM: 23-year-old female presents with epigastric pain for the past 5 days. States the pain is intermittent said it is worst it is 8 out of 10. Denies nausea, vomiting, diarrhea, fevers, flank pain, back pain. States she had this in the past. States she has a history of GERD for which she is taking some unknown medication that she got in [facility]. Low suspicion for appendicitis, ovarian torsion, cholecystitis, pancreatitis, ectopic , or other emergent problems. Given patient history of GERD, this is most likely a repeat case of GERD. Patient given Rx for Pepcid trial. Patient educated that GERD needs to be managed on outpatient basis. Patient discharged with strict ER precautions. Patient advised to follow up with PMD. All questions answered at discharge. Departure Diagnosis: Primary Impression: GERD (gastroesophageal reflux disease) Esophagitis presence: without esophagitis Qualified Codes: K21.9 - Gastro- esophageal reflux disease without esophagitis Condition: DEIDRA Her Jul 18, 2018 19:49
[2018-07-18] MEDS ORDERED: FAMO-96 PO (21:25)
== END 2018-07-18 21:36 | disposition home or self-care (01) ==
LOC: FTE 17:53
DX: K21.9 Gastro-esophageal reflux disease without esophagitis (principal)
CPT/HCPCS: 36415; 76705; 80053; 81025; 82962; 83690; 85025; Z7502

== ENCOUNTER 2018-12-14 19:47 | Emergency (ER) | payer SELFPAY ==
[~2018-12-14 19:47] MED LIST changes: +FAMO-96 PO
== END 2018-12-15 02:24 | disposition left against medical advice (07) ==
LOC: E/R 19:47
DX: Z53.21 Procedure and treatment not carried out due to patient leaving prior to being seen by health care provider (principal)

== ENCOUNTER 2018-12-17 14:58 | Emergency (ER) | payer OTHER ==
[~2018-12-17] VITALS: Ht 175.3 cm; Wt 93.9 kg
[2018-12-17 15:13] VITALS: RESP 18; Ht 175.3 cm; Wt 93.9 kg
[2018-12-17 16:19] VITALS: BP 109/68; PULSE 82
--- NOTE | 2018-12-17 18:38 | ERD ---
ER Documentation Chief Complaint Chief Complaint left leg pain & swelling x1wk, constipation HPI This is a 23-year-old female presents for evaluation of left leg pain. She states that she has noted some swelling over her left leg as well, and has been limping, her pain is most localized to her knee. She has no history of fever. Also endorses history of hemorrhoids, and has had some constipation since a prior . She denies a fever, she has not noted any redness or drainage of her leg. She has not had any chest pain or shortness of breath ROS All systems reviewed and are negative except as per history of present illness. Medications Home Meds Active Scripts Famotidine* (Pepcid*) 20 Mg Tablet, 20 MG PO BID for GERD for 4 Days, #20 TAB Prov:DEIDRA OROZCO 07/18/18 Vit W-Ca,Fe,FA(<1 mg) ( Vitamins) 1 Each Tablet, 1 EACH PO DAILY, #30 TAB Prov:HAWK ANSARI PA-C 08/26/16 Reported Medications Folic Acid* (Folic Acid*) 1 Mg Tablet, 1 MG PO DAILY, TAB 05/14/17 Allergies Allergies: Coded Allergies: No Known Allergy (Unverified , 05/14/17) PMhx/Soc History of Surgery: Yes () Anesthesia Reaction: No Hx Neurological Disorder: No Hx Respiratory Disorders: No Hx Cardiac Disorders: No Hx Psychiatric Problems: No Hx Miscellaneous Medical Probl: Yes (GASTRITIS) Hx Alcohol Use: No Hx Substance Use: No Hx Tobacco Use: No Smoking Status: Never smoker Physical Exam Vitals Vital Signs Date Temp Pulse Resp B/P (MAP) Pulse Ox O2 O2 Flow FiO2 Time Delivery Rate 12/17/18 82 109/68 100 Room Air 16:19 (82) 12/17/18 98.7 91 18 121/72 99 15:13 (88) Physical Exam Const: No acute distress Head: Atraumatic Eyes: Normal Conjunctiva ENT: Normal External Ears, Nose and Mouth. Neck: Full range of motion. No meningismus. Resp: Clear to auscultation bilaterally, no wheezes rales or rhonchi Cardio: Regular rate and rhythm, no murmurs Abd: Soft, non tender, non distended. Normal bowel sounds Skin: No petechiae or rashes Back: No midline or flank tenderness Ext: There is tenderness along the medial patella, there are no deformities, there is trace edema noted of the left lower extremity, radial pulses 2+, there is no erythema or induration, there is no calf tenderness. Compartments are soft and easily compressible Neur: Awake and alert Psych: Normal Mood and Affect Procedures/MDM This is a 23-year-old who presents for evaluation of left knee pain. Patient has no history of trauma, no notable effusion, she has no signs or symptoms of infection such as cellulitis or septic joint. She does have a notable limp, there are no neurovascular deficits. Ultrasound ordered to evaluate for DVT, x- ray was negative. 6:40 PM: Ultrasound negative for DVT, there was a small amount of free fluid noted around the left knee. I considered that this could possibly have been a ruptured Valentine's cyst, which would be consistent with a history and physical, I recommended the patient follow-up with her PMD this week, in any event should her symptoms not improve, as she may need further studies, strict return precautions given for fever, worsening pain or any other concerns, at discharge she was in no distress. Departure Diagnosis: Primary Impression: Knee pain Chronicity: unspecified Laterality: unspecified laterality Qualified Codes: M25.569 - Pain in unspecified knee Condition: Stable JONEL MERINO MD Dec 17, 2018 18:38
[2018-12-17] MEDS ORDERED: HYDR30CR75 PR (19:00)
== END 2018-12-17 19:10 | disposition home or self-care (01) ==
LOC: FTE 14:58
DX: M25.562 Pain in left knee (principal)
CPT/HCPCS: 73562; 93971; Z7502